=== PATIENT | female | born 1945 | race African-American/Black ===

== ENCOUNTER → 2017-07-31 | Outpatient (CLI) | payer OTHER, MEDICARE | END | disposition home or self-care (01) | LOC: KCIC MRI 10:53 | DX: M51.36 Other intervertebral disc degeneration, lumbar region (principal); R60.0 Localized edema | CPT/HCPCS: 72148 ==

== ENCOUNTER → 2017-08-23 | Outpatient (CLI) | payer OTHER | END | disposition home or self-care (01) | LOC: KCIC MAMMO 12:39 | DX: Z12.31 Encounter for screening mammogram for malignant neoplasm of breast (principal) | CPT/HCPCS: 77063; 77067 ==

== ENCOUNTER → 2018-03-07 | Outpatient (CLI) | payer MEDICARE, OTHER ==
[~2018-03-07] MED LIST: CITA10TA4 PO; CRESTOR10 MG PO; METF500T16 PO
--- NOTE | 2018-03-07 13:12 | KCIC ---
Examination: CHEST PA LATERAL History: Fatigue and dyspnea Comparison/Correlation: None Findings: PA and lateral views of chest were obtained. Heart size and pulmonary vasculature are normal. No infiltrate or pleural effusion. Minimal discoid atelectasis involves the lung bases. No pneumothorax. Bony structures are unremarkable. Impression: Mild bibasilar discoid atelectasis. Electronically signed by: Raul Claudio MD (03/07/2018 1:09 PM) [facility]
== END | disposition home or self-care (01) ==
LOC: KCIC 11:12
PROVIDERS: ATTEND Nurse Practitioner Family
DX: J98.11 Atelectasis (principal); R53.83 Other fatigue; R06.09 Other forms of dyspnea
CPT/HCPCS: 71046

== ENCOUNTER → 2018-04-12 | Outpatient (CLI) | payer MEDICARE ==
--- NOTE | 2018-04-12 14:49 | KCIC ---
PA and lateral chest x-ray compared to similar study dated March 07, 2018 for chest rails, sarcoidosis. FINDINGS: Lungs are better aerated today. Previously seen posterior infiltrate appears improved. Heart size is mildly enlarged but stable. There is atherosclerosis of the aorta. IMPRESSION: 1. Improved posterior basilar infiltrate and bibasilar atelectasis. No new lung parenchymal abnormalities. Electronically signed by: Vinnie Anne MD (04/12/2018 2:46 PM) [id number]
== END | disposition home or self-care (01) ==
LOC: KCIC 09:45
PROVIDERS: ATTEND Family Medicine
DX: D86.9 Sarcoidosis, unspecified (principal); R09.89 Other specified symptoms and signs involving the circulatory and respiratory systems; R91.8 Other nonspecific abnormal finding of lung field; J98.11 Atelectasis
CPT/HCPCS: 71046

== ENCOUNTER → 2018-09-28 | Outpatient (CLI) | payer OTHER ==
--- NOTE | 2018-09-28 17:47 | KCIC ---
Bilateral digital screening mammograms with 3-D tomosynthesis: Reason for examination: Routine screening. Comparison is made to previous studies dated 08/23/2017 and 02/26/2015. Bilateral mammograms in CC and oblique projections were obtained with 2-D imaging and 3-D tomosynthesis imaging on a [employer] unit and reviewed on the workstation. Interpretation was made with the benefit of CAD. The skin and nipples show no abnormalities. No abnormal axillary lymph nodes are seen. The breast parenchyma is predominantly fatty. (Breast density: Category A.) There continues to be a small subtle nodular parenchymal density at the 7:00 position anteriorly in the right breast which is stable. There are no new no dominant masses, suspicious calcifications or architectural distortion. Impression: No evidence of malignancy. Recommend routine screening. BI-RAD Category 2: Benign. "Our facility is accredited by the [employer] Mammography Program." This patient's information has been entered into a reminder system for the patient to be notified with the results of her examination and a target date for the next mammogram. Electronically signed by: Ermelinda Chen MD (09/28/2018 5:44 PM) [id number]
== END | disposition home or self-care (01) ==
LOC: KCIC MAMMO 12:33
PROVIDERS: ATTEND Family Medicine
DX: Z12.31 Encounter for screening mammogram for malignant neoplasm of breast (principal)
CPT/HCPCS: 77063; 77067